=== PATIENT | female | born 1985 | race Caucasian/White ===

== ENCOUNTER 2021-08-22 14:32 | Emergency (ER) | payer OTHER, SELFPAY ==
--- NOTE | ~2021-08-22 | XR_ITS ---
XR toe 2nd RT min 2V DATE: 08/22/2021 16:23 INDICATION: Post reduction second digit TECHNIQUE: AP and lateral views COMPARISON: 08/22/2021 prereduction right foot radiographs FINDINGS: There is reduction of the dislocation at the proximal interphalangeal joint of the second d igit. No apparent associated fracture is evident. IMPRESSION: Reduction of dislocation at proximal interphalangeal joint Reviewed, dictated and finalized at location B.
--- NOTE | ~2021-08-22 | XR_ITS ---
EXAMINATION: XR foot RT min 3V DATE: 08/22/2021 15:43 INDICATION: Right second toe pain. TECHNIQUE: 4 views of right foot were obtained. COMPARISON: None. FINDINGS: There is dorsal dislocation of second middle phalanx with respect to the proximal phalanx. No fracture. Joint spaces are normal. IMPRESSION: 1. Dislocation of second proximal interphalangeal joint. Reviewed, dictated and finalized at location A.
[2021-08-22 15:03] VITALS: BP 131/82; PULSE 79; RESP 14; TEMP 36.6; O2SAT 98
--- NOTE | 2021-08-22 16:01 | ED.LOWEXIN ---
HPI - Extremity Injury (Lower) General Chief Complaint: Extremity Injury, Lower Stated Complaint: R 2ND TOE INJURY Time Seen by Provider: 08/22/21 15:23 Source: patient and RN notes reviewed Mode of arrival: ambulatory Limitations: no limitations History of Present Illness HPI Narrative: 35 years old white female accidentally hurt her foot against a washing machine, complaining of right second toe deformity. No other injuries Related Data Home Medications Medication Instructions Recorded Confirmed levonorgestrel-ethinyl estrad tablet 08/22/21 [Vienva] Allergies Allergy/AdvReac Type Severity Reaction Status Date / Time Penicillins Allergy Unknown Hives Verified 08/22/21 15:21 Review of Systems Review of Systems: CONSTITUTIONAL: Denies fever, chills, or sweats. EYES: Denies visual changes, redness, or discharge. ENT: Denies rhinorrhea, congestion, sore throat, or otalgia. CARDIOVASCULAR: Denies chest pain, palpitations, or edema. RESPIRATORY: Denies cough or dyspnea. GASTROINTESTINAL: Denies abdominal pain, nausea, vomiting, or diarrhea. GENITOURINARY: Denies dysuria or hematuria. SKIN: Denies rash or itching. MUSCULOSKELETAL: Denies back pain, joint pain, or myalgia. NEUROLOGIC: Denies headache, numbness, or weakness. PSYCHIATRIC: Denies anxiety or depression. Exam Narrative: General appearance: Well-developed, well-nourished Skin: Normal color Head: Normocephalic, nontraumatic Vascular: Normal peripheral pulses, normal capillary refill. Musculoskeletal: Right second toe is deformed, diffusely tender Neurologic: Alert and oriented ?3, HAND UMBRELL[employer] TIPPER is normal as tested, no gross motor deficit Course Course Emergency Course: Fracture versus dislocation of the right second toe. X-ray ordered. Vital Signs Vital signs: Vital Signs Temperature 36.6 C 08/22/21 15:03 Pulse Rate 79 08/22/21 15:03 Respiratory Rate 14 08/22/21 15:03 Blood Pressure 131/82 08/22/21 15:03 Pulse Oximetry 98 08/22/21 15:03 Temperature 36.6 C 08/22/21 15:03 Pulse Rate 79 08/22/21 15:03 Respiratory Rate 14 08/22/21 15:03 Blood Pressure 131/82 08/22/21 15:03 Pulse Oximetry 98 08/22/21 15:03 MDM - Extremity Injury (Lower) Imaging Data My impression: Impressions Foot X-Ray 08/22/21 15:45 IMPRESSION: 1. Dislocation of second proximal interphalangeal joint. Toe X-Ray 08/22/21 16:26 IMPRESSION: Reduction of dislocation at proximal interphalangeal joint Radiologist's impression: Impressions Foot X-Ray 08/22/21 15:45 IMPRESSION: 1. Dislocation of second proximal interphalangeal joint. Critical Care Time Critical Care Time Critical Care Time: No Discharge Plan Discharge Clinical Impression: Closed dislocation of toe of right foot Qualifiers: Encounter type: initial encounter Qualified Code(s): S93.104A - Unspecified dislocation of right toe(s), initial encounter Patient Disposition: Home, Self-Care Condition: Stable Instructions: Antibiotic Form, Closed Reduction (ED) Additional Instructions: Return if symptoms are worsening , call your family physician for appointment, take Tylenol as as needed for aches and pain, continue home medications. Postop shoe Prescriptions: No Action levonorgestrel-ethinyl estrad [Vienva] 0.1-20 mg-mcg tablet RF: 0 Follow-up/Referrals: Abdulaziz Waters MD [Primary Care Provider] -
[2021-08-22] MEDS: IBUPROFEN 600 MG TABLET PO (17:01)
[2021-08-22] MEDS: ACETAMINOPHEN 325 MG TABLET 650 MG PO (17:02)
[2021-08-22 17:10] VITALS: BP 118/79; PULSE 71; RESP 18; TEMP 36.4; O2SAT 100
== END 2021-08-22 17:10 | disposition home or self-care (01) ==
PROVIDERS: Emergency Provider Emergency Medicine; PCP Family Medicine Adolescent Medicine
DX: S93.114A Dislocation of interphalangeal joint of right lesser toe(s), initial encounter (principal); W22.8XXA Striking against or struck by other objects, initial encounter
CPT/HCPCS: 28660; 73630; 73660; 99284; 99285; A9270

== ENCOUNTER 2021-09-12 15:03 | Outpatient (CLI) | payer OTHER, SELFPAY ==
--- NOTE | ~2021-09-12 | XR_ITS ---
XR toe 2nd RT min 2V DATE: 09/12/2021 15:25 INDICATION: Injury 08/22/2021 with persistent pain TECHNIQUE: 4 years COMPARISON: 08/22/2021 2nd toe FINDINGS: There is an intra-articular anteriorly displaced cortical avulsion fracture of the anterior base of the middle phalanx of the second digit. No dislocation. IMPRESSION: Anteriorly displaced anterior intra-articular cortical avulsion fracture of base of middl e phalanx Reviewed, dictated and finalized at location A. IMPRESSION: Anteriorly displaced anterior intra-articular cortical avulsion fra cture of base of middle phalanx
== END 2021-09-12 15:04 ==
PROVIDERS: PCP Family Medicine Adolescent Medicine; Visit Provider Family Medicine Adolescent Medicine
DX: S92.521A Displaced fracture of middle phalanx of right lesser toe(s), initial encounter for closed fracture (principal)
CPT/HCPCS: 73660

== ENCOUNTER 2024-03-19 13:07 | Outpatient (CLI) | payer OTHER, SELFPAY ==
--- NOTE | ~2024-03-19 | XR_ITS ---
Left Hand Technique: PA and lateral views were obtained. Clinical History: Pain Findings: No acute fracture or dislocation is seen. Osseous alignment is anatomic. Joint spaces are p reserved. Soft tissues are unremarkable. Impression: Unremarkable left hand. Reviewed, dictated and finalized at location M. Impression: Unremarkable left hand.
--- NOTE | ~2024-03-19 | XR_ITS ---
Left wrist Technique: PA and lateral views were obtained. Clinical History: Pain Findings: No acute fracture or dislocation is seen. Osseous alignment is anatomic. Joint spaces are p reserved. Soft tissues are unremarkable. Impression: Unremarkable left wrist radiographs. Reviewed, dictated and finalized at location M. Impression: Unremarkable left wrist radiographs.
== END 2024-03-19 13:08 ==
PROVIDERS: PCP Family Medicine Adolescent Medicine; Visit Provider Family Medicine Adolescent Medicine
DX: M25.532 Pain in left wrist (principal); M79.642 Pain in left hand
CPT/HCPCS: 73100; 73120